=== PATIENT | female | born 1985 | race African-American/Black ===

== ENCOUNTER 2022-07-20 14:06 | Outpatient (REF) | payer BC, SELFPAY ==
[2022-07-20 20:56] LABS: Abs Immature Grans 0.03 10^3/uL (0.0-0.06); Absolute Basophil Count 0.03 10^3/uL (0.0-0.2); Absolute Eosinophil Count 0.09 10^3/uL (0.0-0.7); Absolute Lymphocyte Count 1.79 10^3/uL (1.2-3.4); Absolute Monocyte Count 0.47 10^3/uL (0.1-0.8); Absolute Neutrophil Count 5.16 10^3/uL (1.2-6.7); Basophils % 0.4; Eosinophils % 1.2; HGB 14.2 g/dL (11.2-15.7); Immature Grans % 0.4; Lymphocytes % 23.6; MCH 29.3 pg (27.0-33.0); MCHC 32.3 % (32.0-36.0); MCV 91 fL (80-95); MPV 12.5 fL (8.0-11.0); Monocytes % 6.2; Neutrophils % 68.2; Platelet Count 255 10^3/uL (130-400); RBC 4.85 10^6/uL (3.93-5.22); RDW 13.7 % (11.7-14.6); RDW-SD 45.9 fL; WBC 7.57 10^3/uL (4.4-10.8)
[2022-07-20 21:41] LABS: ALT 27 U/L (14-59); AST 22 U/L (15-37); Albumin 4.2 g/dL (3.4-5.0); Alkaline Phosphatase 110 U/L (46-116); Anion Gap 9.2 mmol/L (3-11); BUN 8 mg/dL (7-18); Bilirubin, Total 0.5 mg/dL (0.2-1.0); CO2 24.8 mmol/L (21.0-32.0); CREATININE 0.8 mg/dL (0.55-1.02); Calculated LDL 116 mg/dL (<100); Chloride 106 mmol/L (98-107); Cholesterol 189 mg/dL (<200); Estimated GFR 99.09 (mL/min/1.73m2); Glucose 105 mg/dL (74-106); HDL Cholesterol 57 mg/dL (40-60); Potassium 3.9 mmol/L (3.5-5.1); Sodium 140 mmol/L (136-145); TSH 0.96 uIU/mL (0.36-3.74); Total Protein 7.3 g/dL (6.4-8.2); Triglyceride 84 mg/dL (<150)
[2022-07-22 09:43] LABS: HIV-1/2 Ag & Ab Screen Negative (Negative)
[2022-07-24 09:27] LABS: Hepatitis C Ab w Rflx HCV PCR Negative (Negative)
== END 2022-07-20 14:07 | disposition home or self-care (01) ==
LOC: NCHCN 14:06
PROVIDERS: Visit Provider Registered Nurse
DX: Z11.3 Encounter for screening for infections with a predominantly sexual mode of transmission (principal); Z51.81 Encounter for therapeutic drug level monitoring; Z00.00 Encounter for general adult medical examination without abnormal findings
CPT/HCPCS: 80053; 80061; 86803; 87389; 84443; 85025

== ENCOUNTER 2022-07-25 10:23 | Outpatient (REF) | payer BC, SELFPAY ==
[2022-07-25 15:07] LABS: Calcium 10.6 mg/dL (8.5-10.1)
[2022-07-26 09:19] LABS: Parathyroid Hormone,Intact 230 pg/mL (19-88)
== END 2022-07-25 10:24 | disposition home or self-care (01) ==
LOC: NCHCN 10:23
PROVIDERS: PCP Registered Nurse; Visit Provider Registered Nurse
DX: E83.52 Hypercalcemia (principal)
CPT/HCPCS: 82310; 83970

== ENCOUNTER 2022-12-07 20:21 | Outpatient (REF) | payer BC, SELFPAY ==
[2022-12-07 20:43] LABS: Source Nasal/Nares
[2022-12-07 22:03] LABS: COVID-19 PCR Negative (Negative)
== END 2022-12-07 20:22 | disposition home or self-care (01) ==
LOC: LBN 20:21
PROVIDERS: PCP Registered Nurse; Visit Provider Physician Assistant Medical
DX: R11.2 Nausea with vomiting, unspecified (principal); Z20.822 Contact with and (suspected) exposure to COVID-19
CPT/HCPCS: 87635